=== PATIENT | female | born 1990 | race Caucasian/White ===

== ENCOUNTER 2020-07-31 15:54 | Day surgery (SDC) | payer BC ==
[2020-07-31] VITALS (7 sets, daily range): BP systolic 103–112; BP diastolic 56–74; PULSE 75–97; TEMP 97.3
[~2020-07-31] VITALS: Ht 160 cm; Wt 76.1 kg
[~2020-07-31 15:54] MED LIST: FERROUS SU325 MG/TAB PO; FLINTSTONES1 CTB; LORTAB 5/500 501 TAB PO; MOTRIN 600600 MG/TAB PO; NORCO 325 MG-51 TAB PO; SUDAFED60 MG PO; TYLENOL PM EXTR1 TA1 PO
--- NOTE | 2020-07-31 16:20 | NUR ---
Patient reports having a cheeseburger, hebrew fries, chicken nuggets, and a Sprite at 1100 today as her last PO intake. Tim Arreaga CRNA is called to notify and states he is aware. Orders are also received for pre-op IV Zofran 4 mg for patient's nausea.
[2020-07-31] MEDS ORDERED: SINGULAIR 110 MG/TAB PO (16:28)
[2020-07-31] MEDS ORDERED: ZOLOFT 50MG50 MG PO (16:28)
[2020-07-31] MEDS ORDERED: CLARITIN 1010 MG/TAB PO (16:28)
--- NOTE | 2020-07-31 17:21 | NUR ---
Report is given to BETTY Cody at this time.
--- NOTE | 2020-07-31 18:30 | NUR ---
Pt arrived on unit from OR. Report received and care assumed. Pt reports no pain at this time. Marija-pad check with scant bleeding noted. Oriented to room and bed with call light within reach. Plan of care reviewed with pt and at the bedside.
[2020-07-31] MEDS ORDERED: IBU600 MG PO (18:31)
--- NOTE | 2020-07-31 20:00 | NUR ---
1999 UP TO BR WITH ASSIST AND VOIDED 100CC. MINIMAL VAG BLEEDING. C/O SOME DISCOMFORT AND A HEADACHE. READY TO GO HOME. INT DCD AND DISMISS INSTRUCTIONS GIVEN. 2014 LORTAB X1 PO GIVEN FOR PREVIOUS COMPLAINTS. 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
== END 2020-07-31 20:30 | disposition home or self-care (01) ==
LOC: SDCO 15:54 → OB 18:30 → SDCO 20:30
DX: O02.1 Missed abortion (principal); O99.341 Other mental disorders complicating pregnancy, first trimester; F90.9 Attention-deficit hyperactivity disorder, unspecified type; F41.9 Anxiety disorder, unspecified; Z3A.10 10 weeks gestation of pregnancy; Z87.891 Personal history of nicotine dependence; O34.219 Maternal care for unspecified type scar from previous cesarean delivery; Z87.59 Personal history of other complications of pregnancy, childbirth and the puerperium
CPT/HCPCS: OP; J1885; J2405; J2704; J3010; J7120